=== PATIENT | female | born 1970 | race Caucasian/White ===

== ENCOUNTER → 2024-11-11 | Outpatient (CLI) | payer OTHER, SELFPAY ==
--- NOTE | 2024-11-11 14:45 | CT_ITS ---
PROCEDURE: SINUS/FACIAL BONE REASON FOR EXAM: SINUSITIS Congestion. TECHNIQUE: CT of the paranasal sinuses without contrast. Coronal and Sagittal reconstruction series were provided. One or more dose reduction techniques were used (e.g., Automated exposure control, adjustment of the mA and/or kV according to patient size, use of iterative reconstruction technique). COMPARISON: None. FINDINGS: Frontal: Partial opacification of the right frontal sinus. Ethmoid: Opacification of the ethmoid sinuses worse on the right side. Sphenoid: Sphenoid sinuses clear. Maxillary: Opacification of the maxillary sinuses more prominent on the right side. The soft tissue density extends into the right nasal fossa through the right ostiomeatal complex. There is compromise of the left ostiomeatal complex as well due to mucosal hypertrophy. Turbinates: Unremarkable. Nasal Septum: Midline. Mastoids/Middle Ears: Unremarkable. CT/Sinus/Facial Bone IMPRESSION: Opacification of the maxillary sinuses worse on the right side with soft tissue proliferation through the right ostiomeatal complex into the nasal cavity on the right side. Opacification of the ethmoid sinuses as well as the right frontal sinus. Reading Location: [id number]
== END | disposition home or self-care (01) ==
PROVIDERS: PCP Nurse Practitioner Family; Referring Provider Otolaryngology; Visit Provider Otolaryngology
DX: J32.8 Other chronic sinusitis (principal); J33.0 Polyp of nasal cavity
CPT/HCPCS: 70486

== ENCOUNTER 2025-01-13 09:20 | Day surgery (SDC) | payer OTHER, SELFPAY ==
--- NOTE | 2025-01-10 08:45 | PAT.ANESEVAL ---
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 When Was Last Pacemaker Check QUESTION #4 FULL TEXT: You/Your Family Experience fever (hyperthermia) with Anesthesia Last Oral Intake Last Oral intake: Last Oral Intake NPO since Meds taken in AM with sips of water? Meds patient instructed to take am of surgery PONV PONV - piledriver carpenter: PONV - piledriver carpenter Female Yes 01/09/25 12:16 HX of Motion Sickness No 01/09/25 12:16 HX of N/V After Surgery No 01/09/25 12:16 Non-Smoker No 01/09/25 12:16 Duration of Surgery greater Yes 01/09/25 12:16 than 60 minutes Number of Risk Factors 2 01/09/25 12:16 PONV Score Moderate Risk 01/09/25 12:16 Respiratory Assessment Respiratory Assessment - piledriver carpenter: Respiratory Tract Infection Hx - piledriver carpenter Hx Respiratory Tract Infection No 01/09/25 12:16 STOP Sleep Apnea STOP Sleep Apnea - piledriver carpenter: STOP Sleep Apnea - piledriver carpenter Hx Hypertension No 01/09/25 12:16 Hx Sleep Apnea No 01/09/25 12:16 CPAP BIPAP Do you snore loudly (louder Yes 01/09/25 12:16 than talking or can be heard Do you often feel tired/ Yes 01/09/25 12:16 fatigued/ sleepy during daytime? Has anyone observed you stop No 01/09/25 12:16 breathing during sleep? STOP Results Positive 01/09/25 12:16 QUESTION #5 FULL TEXT : Do you snore loudly (louder than talking or can be heard through closed doors)? Tobacco Use History Tobacco Use History - piledriver carpenter: Tobacco Use History - piledriver carpenter Tobacco Use Smoking Status Current some day smoker 01/09/25 12:16 Hx Tobacco Use Yes 01/09/25 12:16 Years Smoking Packs Smoked per Day Smoking Cessation Date was within the last 15 years Hx Smoking Cessation Date Hx Smoking Cessation Counseling Hematologic Medial History Hematologic Hx - piledriver carpenter: Hematologic Medical Hx - planer tailer Hx of Blood Transfusion No 01/09/25 12:16 Hx of Transfusion in last 3 No 01/09/25 12:16 Months Date of Last Transfusion (if within last 3 months) Ever experience any problems No 01/09/25 12:16 with transfusion(s)? Specify any problems Hx of Preganancy in last 3 No 01/09/25 12:16 Months Nurse Filling Out Transfusion DSCHRIBER 01/09/25 12:16 & Questions: Date: 01/09/25 01/09/25 12:16 Time: 12:17 01/09/25 12:16 Patient unable to answer at this time (ie. confused, unrespo /Reproduction History /Reproductive History - piledriver carpenter: /Reproductive Hx- piledriver carpenter Hx Now No 01/09/25 12:16 Gestational Age (in weeks): EDC: Hx Hx Para Hx Section SAB No 01/09/25 12:16 Active Medications Active Medications: Current Medications Generic Name Dose Route Start Last Admin Trade Name Freq PRN Reason Stop Dose Admin Oxymetazoline HCl 3 spray 01/13/25 11:10 Oxymetazoline 0.05% 1 [place].Btl NASAL 01/13/25 11:11 PREOP ONE PFSH Medical History Wears glasses Anxiety History of steroid therapy DVT (deep venous thrombosis) Heartburn Vapes nicotine containing substance Home Medications ?Medication ?Instructions ?Recorded ?Last Taken ?Type apixaban 5 mg tablet (Eliquis) 5 mg PO BID 01/09/25 Unknown History fluvoxamine 50 mg tablet 50 mg PO QHS 01/09/25 Unknown History lorazepam 0.5 mg tablet 0.5 mg PO Q8H PRN PRN anxiety 01/09/25 Unknown History Allergy/AdvReac Type Severity Reaction Status Date / Time latex Allergy Severe Hives Verified 01/09/25 12:13 Penicillins Allergy Severe Angioedema Verified 01/09/25 12:13 doxycycline Allergy Intermediate Nausea/Vom/ Verified 01/09/25 12:13 Diarrhea Surgical History (Updated 01/09/25 @ 12:25 by Susana Mckeon) Hx laparoscopic cholecystectomy History of Hx of breast augmentation History of tonsillectomy and adenoidectomy Social History Smoking Status: Current some day smoker tobacco type: e-cigarettes Audit: Pertinent Findings Pertinent Findings EKG Perinent findings: July 24, 2024. Sinus rhythm. Left atrial enlargement. Anterior septal infarct, age undetermined. Recommendation Anesthesia Recommendation Anesthesia recommendation: OPTIMIZED for anesthesia
[2025-01-13] VITALS (11 sets, daily range): BP systolic 128–152; BP diastolic 90–103; PULSE 61–85; RESP 14–16; TEMP 36.8–36.9; O2SAT 94–99; BMI 23.1
[2025-01-13 09:49] LABS: Internal QC Validated? YES +Cl - CLEAR BKGD; Pregnancy, Urine Negative Negative
[2025-01-13] MEDS: Lactated Ringers 1,000 ML 15 ML IV (10:00)
[2025-01-13] MEDS: Oxymetazoline 0.05% 1 SPRAY SPRAY.BTL 3 SPRAY NASAL ×2 (10:00→11:27)
--- NOTE | 2025-01-13 10:18 | PCM.PRE.AN2 ---
ASA Classification* ASA Classification ASA Classification: 3 (Factor V Leiden) Assessment & Plan Anesthesia* Anesthesia Assessment Anesthesia Assessment: Discussed sedation and/or anesthesia options, risks, benefits, and alternatives with patient/parents/legal guardian/POA. Questions invited. The patient/parents/legal guardian/POA seems to understand and agrees to proceed with anesthesia plan. Reviewed the physical assessment, medical history, allergy history and patient home medications list prior to surgery/procedure/anesthetic and documented any changes. Performed airway and anesthesia risk assessments. Anesthesia Type Anesthesia Type: General History Source History Obtained from:: Patient and Chart Anesthesia Focused Assessment* Temperature: 98.5 F Pulse Rate: 75 Blood Pressure: 136/94 Respiratory Rate: 14 Pulse Ox: 98 Airway Assessment Mouth opens: >3 cm Mallampati Score: II Teeth Condition: Intact Neck Range of motion (ROM): Full ROM Focused Labs Anesthesia Preop lab: CBC CHEMISTRY Glucose 88 mg/dL (74-106) 10/03/17 08:00 10/03/17 COAG Urine Test Negative Negative 01/13/25 09:41 01/13/25 Pre-Assessment Diagnosis/Proposed Procedure Planned Operative Procedure(s): FESS Anesthesia History Anesthesia History - loan consultant: Anesthesia History - loan consultant Hx Hospitalization No 01/09/25 12:16 Any Problems With Anesthesia No 01/09/25 12:16 Cholinesterase deficiency No 01/09/25 12:16 You/Your Family Experience No 01/09/25 12:16 fever (hyperthermia) with Relationship Recent Exposure to Contagious No 01/13/25 09:48 Disease Does patient have nerve No 01/09/25 12:16 stimulator Patient instructed to have device shut off --Does patient have Pacemaker No 01/13/25 09:48 or ICD? When Was Last Pacemaker Check QUESTION #4 FULL TEXT: You/Your Family Experience fever (hyperthermia) with Anesthesia Last Oral Intake Last Oral intake: Last Oral Intake NPO since 04:00 01/13/25 09:48 Meds taken in AM with sips of No 01/13/25 09:48 water? Meds patient instructed to take am of surgery PONV PONV - loan consultant: PONV - loan consultant Female Yes 01/09/25 12:16 HX of Motion Sickness No 01/09/25 12:16 HX of N/V After Surgery No 01/09/25 12:16 Non-Smoker No 01/09/25 12:16 Duration of Surgery greater Yes 01/09/25 12:16 than 60 minutes Number of Risk Factors 2 01/09/25 12:16 PONV Score Moderate Risk 01/09/25 12:16 Height & Weight Height & Weight: Anesthesia: Height & Weight Height 5 ft 9 in 01/13/25 09:48 Weight: 71 kg 01/13/25 09:48 Body Mass Index (BMI) 23.1 01/13/25 09:48 Respiratory Assessment Respiratory Assessment - loan consultant: Respiratory Tract Infection Hx - loan consultant Hx Respiratory Tract Infection No 01/09/25 12:16 STOP Sleep Apnea STOP Sleep Apnea - loan consultant: STOP Sleep Apnea - loan consultant Hx Hypertension No 01/09/25 12:16 Hx Sleep Apnea No 01/09/25 12:16 CPAP BIPAP Do you snore loudly (louder Yes 01/09/25 12:16 than talking or can be heard Do you often feel tired/ Yes 01/09/25 12:16 fatigued/ sleepy during daytime? Has anyone observed you stop No 01/09/25 12:16 breathing during sleep? STOP Results Positive 01/09/25 12:16 QUESTION #5 FULL TEXT : Do you snore loudly (louder than talking or can be heard through closed doors)? 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 Specify any problems Hx of Preganancy in last 3 No 01/09/25 12:16 Months Nurse Filling Out Transfusion DSCHRIBER 01/09/25 12:16 & Questions: Date: 01/09/25 01/09/25 12:16 Time: 12:17 01/09/25 12:16 Patient unable to answer at this time (ie. confused, unrespo /Reproduction History /Reproductive History - loan consultant: /Reproductive Hx- loan consultant Hx Now No 01/09/25 12:16 Gestational Age (in weeks): EDC: Hx Hx Para Hx Section SAB No 01/09/25 12:16 Active Medications Active Medications: Current Medications Generic Name Dose Route Start Last Admin Trade Name Freq PRN Reason Stop Dose Admin Lactated Ringer's 1,000 mls @ 15 mls/hr 01/13/25 09:45 01/13/25 10:00 IV 15 mls/hr .Q48H JAIRO Administration Oxymetazoline HCl 3 spray 01/13/25 11:10 01/13/25 10:00 Oxymetazoline 0.05% 1 [place].B[place] NASAL 01/13/25 11:11 3 spray PREOP ONE Administration PFSH Medical History Wears glasses Anxiety History of steroid therapy DVT (deep venous thrombosis) Heartburn Vapes nicotine containing substance Home Medications ?Medication ?Instructions ?Recorded ?Last Taken ?Type apixaban 5 mg tablet (Eliquis) 5 mg PO BID 01/09/25 01/10/25 History fluvoxamine 50 mg tablet 50 mg PO QHS 01/09/25 Unknown History lorazepam 0.5 mg tablet 0.5 mg PO Q8H PRN PRN anxiety 01/09/25 Unknown History Allergy/AdvReac Type Severity Reaction Status Date / Time latex Allergy Severe Hives Verified 01/13/25 09:47 Penicillins Allergy Severe Angioedema Verified 01/13/25 09:47 doxycycline Allergy Intermediate Nausea/Vom/ Verified 01/13/25 09:47 Diarrhea Surgical History (Updated 01/09/25 @ 12:25 by Susana Mckeon) Hx laparoscopic cholecystectomy History of Hx of breast augmentation History of tonsillectomy and adenoidectomy Social History Smoking Status: Current some day smoker tobacco type: e-cigarettes Review of Systems (Anesthesia) ROS Narrative System reviewed and no additional complaints, except as documented. Physical Exam Const alert, oriented x3 and average body habitus Resp normal respiratory effort, normal air movement and clear to auscultation bilaterally Cardio regular rate, regular rhythm, no murmurs and diaphoretic
--- NOTE | 2025-01-13 10:45 | ETH_PTH ---
PATIENT: CARINA DUMONT [place] [facility] [facility] [place][id number] AGE/SX: 54/F ROOM: RE01/13/[address]: Dr. Samuel Hicks MD : 1970 BED: DIS: 01/13/2025 SPEC #: [id number] RECD: 01/13/25 12:04 STATUS: SONAM FARTUN #: [id number] LEAH: 01/13/25 10:[address]: Samuel Hicks DEPT: SURGICAL PATHOLOGY RECD BY: Ravindra Cruz ENTERED: 01/13/25 14:10 SP TYPE: ETH TISS OTHR DR: Regi Lange, POST ACUTE CARE NURSE PRACTITIONER-C Tissues: A - Ethmoid sinus, NOS B - Ethmoid sinus, NOS Procedures: Surgery Specimen Level IV HEADER OPERATION: Functional endoscopic sinus surgery, navigation PRE-OP DIAGNOSIS: Chronic sinusitis, nasal polyp TISSUE SUBMITTED: A- Right sinus contents, B- Left nasal contents MICROSCOPIC DIAGNOSIS A. Right nasal sinus, endoscopic sinus surgery: * Benign nasal sinus mucosa with chronic inflammation B. Left nasal sinus: * Benign nasal sinus mucosa with chronic inflammation MICROSCOPIC DESCRIPTION Slides are reviewed. GROSS DESCRIPTION A. Received in formalin in a container labeled with the patient's name, date of , and right sinus contents are multiple red-jaffe fragments of soft tissue measuring 2.8 x 1.8 x 0.3 cm in aggregate. No distinct bony fragments are identified. Submitted in toto in A1. B. Received in formalin in a container labeled with the patient's name, date of , and left sinus contents are multiple red-jaffe fragments of soft tissue measuring 2.7 x 1.8 x 0.3 cm in aggregate. No bony fragments are identified. Submitted in toto in B1. [facility] 01-13-2025 CPT:61189r4
--- NOTE | 2025-01-13 10:46 | PCM.DC.SUM ---
Providers Primary Care Physician: SIMÓN Wiseman Reason For Visit: Functional Endoscopoic Sinus Surgery Medications at Discharge Home Medications apixaban 5 mg tablet (Eliquis) 5 mg PO BID 01/09/25 fluvoxamine 50 mg tablet 50 mg PO QHS 01/09/25 lorazepam 0.5 mg tablet 0.5 mg PO Q8H PRN PRN anxiety 01/09/25 Weight / BMI Weight Weight: 71 kg Body Mass Index (BMI) 23.1 ABG / Lab / Microbiology Data Laboratory: Laboratory Results - last 24 hr 01/13/25 09:41: Urine Test Negative D/C Instructions Discharge Diet: No restrictions Discharge Activity: Return to Normal Activity Additional Activity Instructions: No nose blowing Start saline irrigation on 01/14/25. Irrigate 4x/day DC O2, CPAP, BIPAP Needs Home O2 Discharge instructions: No Please Follow Up With: Samuel Hicks MD When: next week Meaningful Use Info Meaningful Use Meaningful Use Diagnoses (Choose all that apply): None applicable Ischemic Stroke Statin Dosing Therapy Reference: STATIN DOSE THERAPY REFERENCE: * Patients > 75 years receive moderate or high dose statin therapy. * Patients 75 years or YOUNGER should receive HIGH intensity statin dose unless contraindicated. You will be required to document reason for non-treatment if statin daily dose does not meet guidelines. HIGH DOSE STATIN THERAPY DAILY Atorvastatin > than or = to 40 mg Rosuvastatin > than or = to 20 mg Amlodipine + Atorvastatin > than or = to 2.5/40 mg Ezetimibe + Simvastatin 10/80 mg Simvastatin 80mg Discharge Plan Admission Attending Provider: Samuel Hicks Primary Care Provider: Regi Lange NP Instructions Print Language: Haitian Discharge Orders/Prescriptions Prescriptions: No Action fluvoxamine 50 mg tablet 50 mg PO QHS Eliquis 5 mg tablet 5 mg PO BID lorazepam 0.5 mg tablet 0.5 mg PO Q8H PRN PRN (Reason: anxiety) Referrals / Follow Up: Regi Lange NP, ADJUNCT POLITICAL SCIENCE INSTRUCTOR-C [Primary Care Provider] - Disposition Disposition (needs filled in before D/C Order can be placed): Home, Self Care
--- NOTE | 2025-01-13 10:48 | OP.PCM_ITS ---
Operative Report (Standard) Operative Information Date of Procedure: 01/13/25 Pre-Operative Diagnosis: chronic sinusitis Post-Operative Diagnosis: same Surgery/Procedure Performed: Bilateral total ethmoidectomy Bilateral maxillary antrostomy use of navigation inspection machine tender: No Type of Anesthesia: General RN Documented Start/Stop Times: Operation Date: 01/13/25 10:45 Case Time Into Pre-Op 01/13/25 09:31 Out of Pre-Op 01/13/25 10:35 Procedure Start Time: 11:00 Procedure Stop Time: 11:34 Select all DRAINS/GRAFTS/IMPLANTS that apply: None Estimated Blood Loss: minimal Specimen collected: Yes Description of specimen(s) removed: right and left sinus contents Description of surgery: The patient was taken to the operating room on 01/13/2025. The patient was placed in the supine position on the operating table. The patient was given sufficient general endotracheal anesthesia. The head of bed was elevated 30 degrees. The navigation system was placed and verified per protocol and found to be accurate. 0 and 30 degrees rigid nasal endoscopes were used throughout the entire case. The middle turbinate uncinate process and polyps were injected with 1% lidocaine with epinephrine bilaterally. The right middle turbinate was medialized with a Hatton elevator. Polyp was removed from the middle meatus using a sinus shaver. A ball-tipped sinus seeker was placed into the patient's maxillary sinus. The maxillary antrostomy was created with a backbiter. It was widened posteriorly with a Kamar-Cut forceps. The uncinate process was taken down using a microdebrider. Next, the ethmoid bulla was opened with a small curette. Anterior and posterior ethmoidectomy were then carried out using curette, sinus shaver and 45 degree Blakesley Danny forceps. Ethmoid cells were verified for relation to the skull base and orbit prior to being entered with the navigation system. I then placed Afrin pledgets into the sinonasal cavity. Next attention was turned to the left side. The middle turbinate was medialized with a Hatton elevator. The maxillary antrostomy was created with a backbiter. It was widened posteriorly with Kamar-Cut forceps. The uncinate process was taken down using a sinus shaver. The ethmoid bulla was opened with a small curette. Anterior and posterior ethmoidectomy were then carried out using a sinus shaver, curette and Blakesley Danny forceps. Ethmoid cells were verified for relation to the skull base and orbit prior to being entered with the navigation system. Hemostasis was then achieved using Afrin pledgets. The pledgets were then removed bilaterally and José Miguel powder was applied bilaterally for absolute hemostasis. A small amount of suction cautery was used on the middle turbinate bilaterally for hemostasis. The procedure was then terminated. The patient was then awoken and brought to the recovery room in stable condition. blood loss minimal, replacement none. Sponge, needle, instrument count were correct at the end of the procedure. Surgical Findings: chronic sinusitis Complications Complications: No
[2025-01-13] MEDS: Lidocaine 1% /Epi 1:100 (20ml) 20 ML Vial (11:00)
--- NOTE | 2025-01-13 12:33 | PCM.POST.ANE ---
Anesthesia: Postop Eval I Current Vital Signs Temperature: 98.2 F Pulse Rate: 85 Blood Pressure: 152/103 Respiratory Rate: 16 Pulse Ox: 98 Oxygen Delivery Method: Room Air Assessment Airway patent: Yes Spontaneous unlabored respirations: Yes Mental status: Awake and Calm nausea: No Vomiting: No Anesthesia Complication: No Fluid Hydration Crystalloid volume administer (ml): 800 Total IV fluid infused: 800 Progress Note Anesthesia document: Postop Eval 1 completed: Yes
--- NOTE | 2025-01-13 13:06 | POSTOPAN2_ITS ---
Anesthesia Postop Eval I Sum Postop Eval Completion status Anesthesia document: Postop Eval 1 completed: Yes Anesthesia Postop Eval I Summary Anesthesia Postop Eval I Summary: Anesthesia Postop Eval I: Assessment Summary Airway patent Yes 01/13/25 12:34 FORTUNE COOKIE [email or web address] Spontaneous unlabored Yes 01/13/25 12:34 FORTUNE COOKIE [email or web address].[email or web address] respirations Mental status Awake,Calm 01/13/25 12:34 FORTUNE COOKIE MAKER.[email or web address] nausea No 01/13/25 12:34 FORTUNE COOKIE MAKER.[email or web address] Vomiting No 01/13/25 12:34 FORTUNE COOKIE MAKER.[email or web address] Anesthesia Postop Eval I: Fluid Summary Crystalloid volume administer 800 01/13/25 12:34 FORTUNE COOKIE MAKER.[email or web address] (ml) Colloids volume administered ( ml) Blood Product volume administered (ml) Total IV fluid infused 800 01/13/25 12:34 FORTUNE COOKIE MAKER.[email or web address] Anesthesia Postop Eval I: Summary Notes Anesthesia Complication No 01/13/25 12:34 FORTUNE COOKIE MAKER.JBLOU Anesthesia Complication Comment: Post-operative progress note Anesthesia: Postop Eval II Evaluation Mental status: Awake Pain Level: 0 nausea: No Vomiting: No Complications Anesthesia Complication: No
--- NOTE | 2025-01-13 13:06 | PCM.POSTANE2 ---
Anesthesia Postop Eval I Sum Postop Eval Completion status Anesthesia document: Postop Eval 1 completed: Yes Anesthesia Postop Eval I Summary Anesthesia Postop Eval I Summary: Anesthesia Postop Eval I: Assessment Summary Airway patent Yes 01/13/25 12:34 MULTIFOCAL LENS INSPECTOR.[email or web address] Spontaneous unlabored Yes 01/13/25 12:34 MULTIFOCAL LENS INSPECTOR.JBLOU respirations Mental status Awake,Calm 01/13/25 12:34 MULTIFOCAL LENS INSPECTOR.JBLOU nausea No 01/13/25 12:34 MULTIFOCAL LENS INSPECTOR.JBLOU Vomiting No 01/13/25 12:34 MULTIFOCAL LENS INSPECTOR.JBLOU Anesthesia Postop Eval I: Fluid Summary Crystalloid volume administer 800 01/13/25 12:34 MULTIFOCAL LENS INSPECTOR.JBLOU (ml) Colloids volume administered ( ml) Blood Product volume administered (ml) Total IV fluid infused 800 01/13/25 12:34 MULTIFOCAL LENS INSPECTOR.JBLOU Anesthesia Postop Eval I: Summary Notes Anesthesia Complication No 01/13/25 12:34 MULTIFOCAL LENS INSPECTOR.JBLOU Anesthesia Complication Comment: Post-operative progress note Anesthesia: Postop Eval II Evaluation Mental status: Awake Pain Level: 0 nausea: No Vomiting: No Complications Anesthesia Complication: No
== END 2025-01-13 13:28 | disposition home or self-care (01) ==
LOC: SDC 09:22 → AC 09:22
PROVIDERS: Student in an Organized Health Care Education/Training Program; PCP Nurse Practitioner Family; Referring Provider Otolaryngology; Visit Provider Otolaryngology
PROC: (CPT 30110; principal; 2025-01-13 10:15)
DX: J32.9 Chronic sinusitis, unspecified (principal); J33.0 Polyp of nasal cavity; Z79.01 Long term (current) use of anticoagulants; Z87.891 Personal history of nicotine dependence; Z86.718 Personal history of other venous thrombosis and embolism
CPT/HCPCS: 30110; 31255; 31256; 00160; 81025; 88305; J2405